=== PATIENT | female | born 1995 | race Caucasian/White ===

== ENCOUNTER 2017-10-17 14:44 | Inpatient (IN) | payer OTHER ==
[2017-10-17] MEDS ORDERED: Ondansetron HCl/PF 4 MG/2 ML Vial IVP PRN (23:05)
[2017-10-17] MEDS ORDERED: NS w/ Oxytocin 10 units 500 ML IV SCH (23:05)
[2017-10-17] MEDS ORDERED: Lidocaine 1% (PF) 30 ML VIAL SC PRN (23:05)
[2017-10-17] MEDS ORDERED: Butorphanol Tartrate 1 MG/ML VIAL SLOW IVP PRN (23:05)
[2017-10-17] MEDS ORDERED: HYDROcodone/Acetaminophen 5/325 mg Tablet PO PRN ×2 (23:05)
[2017-10-17] MEDS ORDERED: Diphenoxylate HCl/Atropine Tablet PO PRN ×2 (23:05)
[2017-10-17] MEDS ORDERED: NS / Oxytocin 40 units/1000ml 1,000 ML IV PRN (23:05)
[2017-10-17] MEDS ORDERED: Misoprostol 200 MCG TAB PR PRN (23:05)
[2017-10-17] MEDS ORDERED: Acetaminophen 500 MG TAB PO PRN (23:05)
[2017-10-17] MEDS ORDERED: Ibuprofen 800 MG TAB PO PRN (23:05)
[2017-10-17] MEDS ORDERED: Promethazine HCl 25 MG/ML VIAL IM PRN (23:05)
[2017-10-17] MEDS ORDERED: Docusate 100 MG CAP PO PRN (23:05)
[2017-10-17] MEDS ORDERED: Zolpidem Tartrate 5 MG TAB PO PRN (23:05)
[2017-10-17 23:34] VITALS: BMI 31.3
[2017-10-17] MEDS: Lactated Ringer's 1,000 ML IV SCH (23:53)
[2017-10-18] MEDS: Misoprostol 100 MCG TAB VAG SCH ×7 (00:02→20:33)
[2017-10-18 00:03] LABS: Hemoglobin 13.3 g/dL (12.0-16.0); Mean Corpuscular HGB CONC 35.6 g/dL (32.0-36.0); Mean Corpuscular Hemoglobin 31.9 pg (27.0-31.0); Mean Corpuscular Volume 89.7 fl (81.0-99.0); Mean Platelet Volume 8.6 fL (7.4-10.4); Platelet Count 287 thou/uL (130-400); RBC Distribution Width 12.2 % (11.5-14.5); Red Blood Cell (RBC) Count 4.18 mill/uL (4.20-5.40); White Blood Cell (WBC) Count 11.8 thou/uL (4.8-10.8)
[2017-10-18 01:20] LABS: Syphilis Antibody Nonreactive (Nonreactive); Syphilis Antibody Index 0.06 S/CO (<1.00 Non-Reactive)
[2017-10-18 01:43] LABS: HBSAg Index 0.21 S/CO (0-0.99); Hep B Surf Ag Non-Reactive S/CO (NonReactive)
[2017-10-18] MEDS: Lactated Ringer's 1,000 ML IV SCH ×2 (06:53→12:10)
[2017-10-18] MEDS ORDERED: DISCONTINUE ALL PREVIOUS NARCOTICS FS SCH (08:30)
[2017-10-18] MEDS ORDERED: Bupivacaine 0.5% 20 ML, fentaNYL Citrate/PF 400 MCG in Sodium Chloride 0.9% 72 ML EPIDURAL SCH ×2 (08:30→09:15)
[2017-10-18] MEDS ORDERED: Acetaminophen 325 MG TAB PO PRN (08:55)
[2017-10-18] MEDS ORDERED: Promethazine HCl 25 MG/ML VIAL IM PRN (08:55)
[2017-10-18] MEDS ORDERED: Eucerin (Mineral Oil/Petrolatum,White) 30 gm Jar TOP PRN (08:55)
[2017-10-18] MEDS ORDERED: diphenhydrAMINE 50 MG/ML VIAL IVP PRN (08:55)
[2017-10-18] MEDS ORDERED: Lactated Ringer's 500 ML IV PRN (08:55)
[2017-10-18] MEDS ORDERED: Ondansetron HCl/PF 4 MG/2 ML Vial IVP PRN ×2 (08:55→17:55)
[2017-10-18] MEDS ORDERED: Naloxone HCl 0.4 mg/ml Vial IVP PRN ×2 (08:55)
[2017-10-18] MEDS ORDERED: ePHEDrine/0.9% NaCl/PF SYRINGE 50 mg/10 ml SLOW IVP PRN (08:55)
[2017-10-18] MEDS ORDERED: Fentanyl 4mcg/Marcaine 0.1% Cassette 100 ML EPIDURAL SCH (09:00)
[2017-10-18] MEDS ORDERED: Communication Order-Pharmacy FS SCH (09:00)
[2017-10-18] MEDS ORDERED: NS w/ Oxytocin 10 units 500 ML ONE (09:30)
[2017-10-18] MEDS ORDERED: Benzocaine/Menthol 20-0.5% 60 ML CAN TOP PRN (17:55)
[2017-10-18] MEDS ORDERED: diphenhydrAMINE 25 MG CAP PO PRN (17:55)
[2017-10-18] MEDS ORDERED: Zolpidem Tartrate 5 MG TAB PO PRN (17:55)
[2017-10-18] MEDS ORDERED: Lanolin Ointment 7 GM TUBE TOP PRN (17:55)
[2017-10-18] MEDS ORDERED: Adacel (T-DAP) 0.5 ML VIAL IM ONE (17:55)
[2017-10-18] MEDS ORDERED: Preparation H Ointment 28 GM TUBE PR PRN (17:55)
[2017-10-18] MEDS ORDERED: Milk Of Magnesia 30 ML UDCUP PO PRN (17:55)
[2017-10-18] MEDS ORDERED: Acetaminophen/Codeine 30-300mg Tablet PO PRN ×2 (17:55)
[2017-10-18] MEDS ORDERED: Bisacodyl 10 MG SUPP PR PRN (17:55)
[2017-10-18] MEDS ORDERED: Misoprostol 200 MCG TAB VAG SCH (18:00)
[2017-10-18] MEDS ORDERED: NS / Oxytocin 40 units/1000ml 1,000 ML IV SCH (18:00)
[2017-10-18] MEDS: Ibuprofen 800 MG TAB PO SCH (23:51)
[2017-10-18] MEDS: Docusate Calcium (SURFAK) 240 MG CAP PO SCH (23:51)
[2017-10-19] MEDS: Ibuprofen 800 MG TAB PO SCH ×3 (05:22→21:01)
[2017-10-19 05:28] LABS: Hemoglobin 11.6 g/dL (12.0-16.0); Mean Corpuscular HGB CONC 33.9 g/dL (32.0-36.0); Mean Corpuscular Hemoglobin 30.8 pg (27.0-31.0); Mean Corpuscular Volume 90.8 fl (81.0-99.0); Mean Platelet Volume 8.4 fL (7.4-10.4); Platelet Count 230 thou/uL (130-400); RBC Distribution Width 12.3 % (11.5-14.5); Red Blood Cell (RBC) Count 3.76 mill/uL (4.20-5.40); White Blood Cell (WBC) Count 12.4 thou/uL (4.8-10.8)
[2017-10-19] MEDS: Ferrous Sulfate 325 MG TAB PO SCH ×2 (10:22→17:34)
[2017-10-19] MEDS: Docusate Calcium (SURFAK) 240 MG CAP PO SCH ×2 (10:31→21:01)
[2017-10-19 22:42] VITALS: TEMP 98
[2017-10-20] MEDS: Ibuprofen 800 MG TAB PO SCH ×2 (05:26→14:00)
[2017-10-20] MEDS: Ferrous Sulfate 325 MG TAB PO SCH (07:40)
[2017-10-20] MEDS: Misoprostol 100 MCG TAB VAG SCH (07:42)
[2017-10-20 08:46] VITALS: BP 111/71
[2017-10-20] MEDS: Docusate Calcium (SURFAK) 240 MG CAP PO SCH (09:43)
== END 2017-10-20 14:30 | disposition home or self-care (01) | DRG 775 ==
LOC: UNDOADMIN 19:14 → L&D 19:14 → 3SW 10-18 20:19 → EDSTATUS 10-24 14:43
PROVIDERS: ADMIT Obstetrics & Gynecology; ATTEND Obstetrics & Gynecology
PROC: 10E0XZZ Delivery of Products of Conception, External Approach (ICD-10-PCS; principal; 2017-10-18)
PROC: 0KQM0ZZ Repair Perineum Muscle, Open Approach (ICD-10-PCS; 2017-10-18)
PROC: 3E0P7VZ Introduction of Hormone into Female Reproductive, Via Natural or Artificial Opening (ICD-10-PCS; 2017-10-18)
DX: O70.1 Second degree perineal laceration during delivery (principal); Z37.0 Single live birth; Z3A.39 39 weeks gestation of pregnancy
CPT/HCPCS: 36415; 51702; 85027; 86780; 86850; 86900; 86901; 87340; 99285; J2550; J3010; J3490; J7050